=== PATIENT | male | born 1945 | race Caucasian/White ===

== ENCOUNTER 2018-03-20 05:25 | Inpatient (IN) ==
[2018-03-20 05:54] LABS: Baso % (Auto) 0.8 % (0.0-2.0); Eos # (Auto) 0.2 th/mm3 (0.0-0.4); Eos % (Auto) 3.3 % (0.0-4.0); Hematocrit 39.6 % (39.0-51.0); Hemoglobin 12.9 gm/dL (13.0-17.0); Lymph # (Auto) 0.7 th/mm3 (1.0-4.8); Mean Corpuscular HGB Conc 32.6 % (32.0-36.0); Mean Corpuscular Hemoglobin 30.1 pg (27.0-34.0); Mean Corpuscular Volume 92.5 fL (80.0-100.0); Mean Platelet Volume 9.7 fL (7.0-11.0); Mono # (Auto) 0.6 th/mm3 (0.0-0.9); Mono % (Auto) 10.5 % (0.0-8.0); Neut # (Auto) 3.8 th/mm3 (1.8-7.7); Neut % (Auto) 71.4 % (16.0-70.0); Platelet Count 123 th/mm3 (150-450); Red Blood Count 4.28 mil/mm3 (4.50-5.90); Red Cell Distribution Width 23.3 % (11.6-17.2); White Blood Count 5.3 th/mm3 (4.0-11.0)
[2018-03-20 06:04] LABS: INR 2.6 Ratio; Prothrombin Time 26.6 sec (9.8-11.6)
[2018-03-20 06:27] LABS: Bilirubin,Urine Negative (Negative); Clarity,Urine Clear (Clear); Color,Urine Yellow (Yellw/Straw); Glucose,Urine (UA) Negative (Negative); Leukocyte Esterase,Urine Negative (Negative); Nitrite,Urine Negative (Negative)
[2018-03-20 06:32] LABS: Hyaline Casts,Urine 0-3 /lpf (0-3); WBC,Urine 0-5 /hpf (0-5)
[2018-03-20 06:32] LABS: Chloride 94 meq/L (98-107); Sodium 136 meq/L (136-145)
--- NOTE | 2018-03-20 06:34 | ED ---
HPI General Chief Complaint: Respiratory Symptoms Stated Complaint: sob/evac Time Seen by Provider: 03/20/18 05:42 Source: patient, family and EMS Mode of arrival: EMS Limitations: no limitations History of Present Illness HPI Narrative: 72-year-old male presents to the emergency department by EMS transport from home for complaint of progressive shortness of breath 2 weeks with lower extremity edema and weight gain orthopnea PND dyspnea on exertion and at rest. Patient has long-standing history of congestive heart failure atrial fibrillation warfarin therapy and states that he has had no fever or chills. No report of chest pain. No report of nausea vomiting abdominal pain flank pain dysuria or change in bowel habits. No increased bruising. No fall or injury. 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 Patient has been followed by the SD for ongoing medication management. Onset (ago): week(s) (2) Duration: progressively worsening Severity: moderate Relieving factors: nothing Exacerbating factors: exertion Description of mucous: other (none) Able to tolerate fluids by mouth: Yes Associated symptoms: denies other symptoms and shortness of breath Treatments prior to arrival: other (lasix 4 am (per "don't know the milligrams")) Related Data Home Medications Medication Instructions Recorded Confirmed carvedilol [Coreg] 3.125 mg PO BID 03/20/18 03/20/18 digoxin 0.125 mg PO DAILY 03/20/18 03/20/18 furosemide 60 mg PO BID 03/20/18 03/20/18 iron polysac-iron heme polypep 150 mg PO BID 03/20/18 03/20/18 lorazepam 0.5 mg PO Q4HR 03/20/18 03/20/18 pantoprazole 40 mg PO BID 03/20/18 03/20/18 sennosides 8.6 mg PO BID PRN 03/20/18 03/20/18 warfarin 2 mg PO [id number] 03/20/18 03/20/18 Allergies Allergy/AdvReac Type Severity Reaction Status Date / Time No Known Allergies Allergy Unverified 03/20/18 05:27 Review of Systems ROS: all other systems reviewed are negative [facility] Medical History Medical History History of atrial fibrillation (Acute) History of gastroesophageal reflux (GERD) (Acute) Hx of acquired congestive heart failure (Acute) Surgical History Surgical History Hx of CABG (Acute) Social History Social History Substance History: No History of Abuse Smoking Status: Never smoker How Often Do You Have a Drink Containing Alcohol: Never Recent Travel in [facility] within the Last 8 Weeks: No Recent Out of Country Travel within the Last 8 Weeks: No Immunization History Tetanus Immunization: Unsure Hx Influenza Vaccine This Season: Yes Exam Narrative Exam Narrative: GENERAL: Well-nourished, well-developed patient.Mild to moderate respiratory distress/work of breathing without stridor or hoarseness. SKIN: Focused skin assessment warm/dry. HEAD: Normocephalic. EYES: No scleral icterus. No injection or drainage. NECK: Supple, trachea midline. No JVD or lymphadenopathy. CARDIOVASCULAR: Increased irregular irregular rate and rhythm without murmurs, gallops, or rubs. RESPIRATORY: Breath sounds equal bilaterally Bibasilar crackles and diminished breath sounds. No accessory muscle use. GASTROINTESTINAL: Abdomen soft, non-tender, nondistended. MUSCULOSKELETAL: No cyanosis, 3+ pitting BLE edema. BACK: Nontender without obvious deformity. No CVA tenderness. Course Initial Documented Vital Signs Temperature 97.7 F 03/20/18 05:31 Pulse Rate 102 H 03/20/18 05:31 Respiratory Rate 18 03/20/18 05:31 Blood Pressure 107/75 03/20/18 05:31 Pulse Oximetry 99 03/20/18 05:31 Last Documented Vital Signs Temperature 97.7 F 03/20/18 05:31 Pulse Rate 96 H 03/20/18 06:25 Respiratory Rate 18 03/20/18 06:25 Blood Pressure 106/70 03/20/18 06:25 Pulse Oximetry 98 03/20/18 06:25 Medical Decision Making MDM Narrative Medical decision making narrative: 72-year-old male presents to the emergency department for complaint of shortness of breath with known history of CHF and atrial fibrillation without any recent febrile illness productive cough chest pain no syncope or syncope. Patient has had increasing weight gain and lower extremity edema has been taking diuretic [facility] without improvement. Patient placed on quality assurance monitor body with continuous pulse oximetry IV access obtained specimens collected and sent for resulting patient identified to have bibasilar crackles plan will be to administer furosemide diuresis as well as evaluate further for ACS PE pneumonia anemia arrhythmia metabolic disturbance. Patient with known CHF and seems refractory to outpatient medication ordered 40 mg of Lasix to be administered IV however medications to be administered 20 mg and then as tolerated additional 20 mg. CBC with automated differential hemoglobin 12.9 platelet count 123,000 otherwise values grossly normal range; INR is in therapeutic range at 2.6; BNP is elevated at 3076; chest x-ray shows cardiomegaly with patchy interstitial changes right greater than left bibasilarly no pneumothorax no pleural effusion ; chemistries remarkable for normal BUN and creatinine of 17/1.10 respectively patient is hypokalemic with a potassium of 3.0 this will need to be replaced with plan to use oral potassium 40 mEq once digoxin identified calcium is minimally decreased at 8.4 magnesium is in; urinalysis shows proteinuria otherwise unremarkable; troponin and CK values are pending patient is symptomatically improved after Lasix 20 mg IV patient continues to show multifocal frequent PVCs is in atrial fibrillation with controlled ventricular rate. Patient 72-year-old male assumed by me Dr. Pompa from Dr. Johnson at 0700 shift change. Patient anasarca test with edema from his ankles all the way up to his abdomen, he also has some penile edema. Other pertinent positives patient's been having multifocal PVCs stringing together as many as 3 beats in a row on monitor, he has not had any chest pain despite a troponin of 0.2. His digoxin is therapeutic, potassium replaced orally. His blood pressure actually I think is high enough to tolerate an additional 20 of Lasix now but the patient will require several days of diuresis and will need to be admitted to the hospital. This was discussed with him and he is agreeable. Discussed with Dr. Altman who will admit. His saturations have been in the high 90s on 2 L nasal cannula. He does not appear to be in any distress at all. Patient incidentally does have a fair amount of penile edema, it is not compromising the urethral flow but for the patient's comfort a [place] catheter was placed. Patient has seen Dr. Lyles once in the past but has not actually established. Medical Screen Exam Complete: Yes Emergency Medical Condition: Yes Differential Diagnosis Differential Diagnosis: Dyspnea dyspnea, CHF, pneumonia, ACS, arrhythmia, electrolyte disturbance, PE, anemia, dig toxicity, renal failure Medical Records Medical records reviewed: Yes I reviewed the patient's medical records. NONE Lab Data Lab results reviewed: Yes I reviewed the patient's lab results. Result diagrams: 03/20/18 05:37 03/20/18 06:10 Lab Results 03/20/18 03/20/18 03/20/18 Range/Units 05:37 05:37 05:37 CBC w Diff Auto diff final WBC 5.3 (4.0-11.0) th/mm3 RBC 4.28 L (4.50-5.90) mil/mm3 Hgb 12.9 L (13.0-17.0) gm/dL Hct 39.6 (39.0-51.0) % MCV 92.5 (80.0-100.0) fL MCH 30.1 (27.0-34.0) pg MCHC 32.6 (32.0-36.0) % RDW 23.3 H (11.6-17.2) % Plt Count 123 L (150-450) th/mm3 MPV 9.7 (7.0-11.0) fL Neut % (Auto) 71.4 H (16.0-70.0) % Lymph % (Auto) 14.0 (9.0-44.0) % [place] % (Auto) 10.5 H (0.0-8.0) % Eos % (Auto) 3.3 (0.0-4.0) % Baso % (Auto) 0.8 (0.0-2.0) % Neut # (Auto) 3.8 (1.8-7.7) th/mm3 Lymph # (Auto) 0.7 L (1.0-4.8) th/mm3 [place] # (Auto) 0.6 (0.0-0.9) th/mm3 Eos # (Auto) 0.2 (0.0-0.4) th/mm3 Baso # (Auto) 0.0 (0.0-0.2) th/mm3 WBC Differential . Differential Comment . PT 26.6 H (9.8-11.6) sec INR 2.6 Ratio Sodium (136-145) meq/L Potassium (3.5-5.1) meq/L Chloride (98-107) meq/L Carbon Dioxide (21.0-32.0) meq/L Anion Gap (5-15) meq/L BUN (7-18) mg/dL Creatinine (0.60-1.30) mg/dL Estimated GFR (>89) mL/min Random Glucose (74-106) mg/dL Calcium (8.5-10.1) mg/dL Magnesium (1.5-2.5) mg/dL Total Bilirubin (0.2-1.0) mg/dL AST (15-37) U/L ALT (12-78) U/L Alkaline Phosphatase (45-117) U/L Total Creatine Kinase (39-308) U/L Troponin I (0.02-0.05) ng/mL B-Natriuretic Peptide 3076 H (0-100) pg/mL Total Protein (6.4-8.2) g/dL Albumin (3.4-5.0) g/dL Urine Color (Yellw/Straw) Urine Clarity (Clear) Urine pH (5.0-8.5) Ur Specific [place] (1.002-1.035) Urine Protein (Neg-Trace) mg/dL Urine Glucose (UA) (Negative) mg/dL Urine Ketones (Negative) mg/dL Urine Occult Blood (Negative) Urine Nitrate (Negative) Urine Bilirubin (Negative) Urine Urobilinogen (Less than 2) mg/dL Ur Leukocyte Esterase (Negative) Urine WBC (0-5) /hpf Hyaline Casts (0-3) /lpf Micro UA Comment Urine Culture Comments Digoxin (0.8-2.0) ng/mL 03/20/18 03/20/18 Range/Units 06:10 06:20 CBC w Diff WBC (4.0-11.0) th/mm3 RBC (4.50-5.90) mil/mm3 Hgb (13.0-17.0) gm/dL Hct (39.0-51.0) % MCV (80.0-100.0) fL MCH (27.0-34.0) pg MCHC (32.0-36.0) % RDW (11.6-17.2) % Plt Count (150-450) th/mm3 MPV (7.0-11.0) fL Neut % (Auto) (16.0-70.0) % Lymph % (Auto) (9.0-44.0) % [place] % (Auto) (0.0-8.0) % Eos % (Auto) (0.0-4.0) % Baso % (Auto) (0.0-2.0) % Neut # (Auto) (1.8-7.7) th/mm3 Lymph # (Auto) (1.0-4.8) th/mm3 [place] # (Auto) (0.0-0.9) th/mm3 Eos # (Auto) (0.0-0.4) th/mm3 Baso # (Auto) (0.0-0.2) th/mm3 WBC Differential Differential Comment PT (9.8-11.6) sec INR Ratio Sodium 136 (136-145) meq/L Potassium 3.0 L (3.5-5.1) meq/L Chloride 94 L (98-107) meq/L Carbon Dioxide 36.0 H (21.0-32.0) meq/L Anion Gap 6 (5-15) meq/L BUN 17 (7-18) mg/dL Creatinine 1.10 (0.60-1.30) mg/dL Estimated GFR 66 L (>89) mL/min Random Glucose 106 (74-106) mg/dL Calcium 8.4 L (8.5-10.1) mg/dL Magnesium 1.8 (1.5-2.5) mg/dL Total Bilirubin 1.4 H (0.2-1.0) mg/dL AST 20 (15-37) U/L ALT 16 (12-78) U/L Alkaline Phosphatase 117 (45-117) U/L Total Creatine Kinase 33 L (39-308) U/L Troponin I 0.23 H (0.02-0.05) ng/mL B-Natriuretic Peptide (0-100) pg/mL Total Protein 6.7 (6.4-8.2) g/dL Albumin 3.2 L (3.4-5.0) g/dL Urine Color Yellow (Yellw/Straw) Urine Clarity Clear (Clear) Urine pH 6.0 (5.0-8.5) Ur Specific [place] 1.010 (1.002-1.035) Urine Protein 30 H (Neg-Trace) mg/dL Urine Glucose (UA) Negative (Negative) mg/dL Urine Ketones Negative (Negative) mg/dL Urine Occult Blood Negative (Negative) Urine Nitrate Negative (Negative) Urine Bilirubin Negative (Negative) Urine Urobilinogen 1.0 (Less than 2) mg/dL Ur Leukocyte Esterase Negative (Negative) Urine WBC 0-5 (0-5) /hpf Hyaline Casts 0-3 (0-3) /lpf Micro UA Comment Culture not ind Urine Culture Comments Culture not ind Digoxin 1.0 (0.8-2.0) ng/mL Imaging Data Radiologist's impression: Chest X-Ray 03/20/18 05:27 CONCLUSION: Small bilateral effusions and right lower lobe airspace disease suspected. ECG Data EKG Prior to Arrival: No Attestation: I personally reviewed and interpreted this ECG as follows: Prior ECG tracings: not available for review Interpretation: EKG: Atrial fibrillation with controlled ventricular rate 90 multiple PVCs IVCD no acute ST elevation nonspecific ST-T changes laterally Discharge Plan Discharge Disposition Patient Disposition: 30 Still Patient Discharge Condition Condition: Fair Discharge Details Diagnosis: Anasarca, CHF (congestive heart failure), Frequent PVCs, Elevated troponin Physicians Team ED Provider: Wesley Pompa Primary Care Provider: UNKNOWN, Attending Provider: Celio Wong Other Providers: Cj Ricardo Status ED Status: Admitted Patient
[2018-03-20 06:35] LABS: Calcium 8.4 mg/dL (8.5-10.1)
[2018-03-20 06:36] LABS: Albumin 3.2 g/dL (3.4-5.0); Anion Gap 6 meq/L (5-15); Blood Urea Nitrogen 17 mg/dL (7-18); Glucose,Random 106 mg/dL (74-106); Magnesium 1.8 mg/dL (1.5-2.5)
[2018-03-20 06:38] LABS: Alanine Aminotransferase 16 U/L (12-78); Aspartate Aminotransferase 20 U/L (15-37)
[2018-03-20 06:39] LABS: Glomerular Filtration Rate 66 mL/min (>89)
[2018-03-20 06:40] LABS: Total Protein 6.7 g/dL (6.4-8.2)
[2018-03-20 06:41] LABS: Alkaline Phosphatase 117 U/L (45-117)
[2018-03-20 06:44] LABS: Troponin I 0.23 ng/mL (0.02-0.05)
[2018-03-20 07:06] LABS: Creatine Kinase 33 U/L (39-308)
--- NOTE | 2018-03-20 07:29 | XR ---
EXAM DATE: 03/20/2018 5:58 AM EDT AGE/SEX: 72 years / Male INDICATIONS: Short of breath for 3 days. CLINICAL DATA: This is the patient's initial encounter. Patient reports that signs and symptoms have been present for 3 days and indicates a pain score of 2/10. MEDICAL/SURGICAL HISTORY: Chronic obstructive pulmonary disease. . Open heart surgery. COMPARISON: No prior exams available for comparison. FINDINGS: Cardiomegaly, median sternotomy wires, and blunting of the right lateral costophrenic angle and left lateral costophrenic angle identified suggesting small. There is hazy infiltrate suspected in the rig ht lower lobe as well as linear scarring. CONCLUSION: Small bilateral effusions and right lower lobe airspace disease suspected. Electronically signed by: Himanshu Calhoun MD 03/20/2018 7:27 AM EDT
[2018-03-20] MEDS ORDERED: Acetaminophen 325 MG Tablet PO PRN ×2 (09:26→13:59)
[2018-03-20] MEDS ORDERED: Bisacodyl 10 MG Supp RECTAL PRN (09:26)
[2018-03-20] MEDS ORDERED: Warfarin Consult Pharmacy OTHER PRN (09:30)
[2018-03-20 11:24] LABS: Troponin I 0.24 ng/mL (0.02-0.05)
[2018-03-20] MEDS ORDERED: Morphine Inj 4 MG/ML Vial IV.PUSH PRN (13:59)
[2018-03-20] MEDS ORDERED: Naloxone Inj 0.4 MG/ML Vial IV.PUSH PRN (13:59)
--- NOTE | 2018-03-20 14:13 | P.HP ---
History of Present Illness Primary Care Physician: UNKNOWN History of Present Illness: This is a 73-year-old male with a history of systolic heart failure EF 25%, atrial fibrillation on Coumadin, aVR, coronary artery disease status post multiple CABG and stent and chronic respiratory failure on nasal cannula. Family history no NC. Patient presents to the emergency department because of shortness of breath for the past 2 weeks. He reports of orthopnea, PND, dyspnea on exertion, bilateral lower extremity edema and weight gain. States he has been compliant with medical therapy, fluid and dietary restrictions though he admitted partaking microwavable food. Denies fever, chills, cough, chest pain. Patient has been under hospice for the past 3 weeks secondary to heart failure. At this time he wants aggressive care but does not want cardiac catheterization. All other systems reviewed negative. Inpatient Certification: I certify that the inpatient services were ordered in accordance with Medicare regulations governing the order. This includes certification that hospital inpatient services are reasonable and necessary and in the case of services not specified as inpatient-only under 42 CFR 419.22(n), that they are appropriately provided as inpatient services in accordance to with the 2-midnight benchmark under 43 CFR 412.3(e) Estimated Total Length of Stay (Days): 2 Plans for Post Hospital Care: Not yet determined Review of Systems All other systems reviewed negative except as stated in HPI PMFSH - History History Provided By: Patient, Forming Machine Operator / EMT - Medical History Medical History: Medical History (Last Reviewed 03/20/18 @ 06:30 by Diamante Johnson MD) History of atrial fibrillation History of gastroesophageal reflux (GERD) Hx of acquired congestive heart failure - Surgical History Surgical History: Surgical History (Last Reviewed 03/20/18 @ 06:30 by Diamante Johnson MD) Hx of CABG - Tobacco History Smoking Status: Never smoker - Alcohol History How Often Do You Have a Drink Containing Alcohol: Never - Substance Use History Substance History: No History of Abuse - Travel History Recent Travel in the [place] Within the Last 8 Weeks: No Recent Travel Out of the Country Within the Last 8 Weeks: No - Immunization History Tetanus Immunization: Unsure Hx Influenza Vaccine This Season: Yes Medications and Allergies Active Medications: Active Medications Acetaminophen (Tylenol) 650 mg PO Q4H PRN PRN Reason: Temp > 100.4 Al Hydroxide/Mg Hydroxide (Milk Of Magnesia Liq) 30 ml PO Q12H PRN PRN Reason: Mild Constipation Bisacodyl (Dulcolax Supp) 10 mg RECTAL DAILY PRN PRN Reason: SEVERE CONSITIPATION Carvedilol (Coreg) 3.125 mg PO BID [facility] Digoxin (Lanoxin) 125 mcg PO DAILY [facility] Furosemide (Lasix Inj) 20 mg IV.PUSH BID@0900,1800 [facility] Lactulose (Lactulose Liq) 30 ml PO DAILY PRN PRN Reason: SEVERE CONSITIPATION Lorazepam (Ativan) 0.5 mg PO Q4HR PRN PRN Reason: ANXIETY Ondansetron HCl (Zofran Inj) 4 mg IV.PUSH Q6H PRN PRN Reason: NAUSEA OR VOMITING Pantoprazole Sodium (Protonix) 40 mg PO BID [facility] Pharmacy Profile Note (Coumadin Consult Pharmacy) 1 each OTHER UNSCH PRN PRN Reason: PHARMACY DOCUMENTATION Potassium Chloride (Kcl) 10 meq PO BID [facility] Sennosides (Senokot) 17.2 mg PO Q12H PRN PRN Reason: Moderate Constipation Sodium Chloride (Ns Flush) 2 ml IV.FLUSH PRN PRN PRN Reason: FLUSH AFTER USING IV ACCESS Last Admin: 03/20/18 09:32 Dose: 2 ml Warfarin Sodium (Coumadin) 2 mg PO [id number]@1600 [facility] Allergies Allergy/AdvReac Type Severity Reaction Status Date / Time No Known Allergies Allergy Unverified 03/20/18 05:27 Home Medications Medication Instructions Recorded Confirmed Type carvedilol [Coreg] 3.125 mg PO BID 03/20/18 03/20/18 History digoxin 0.125 mg PO DAILY 03/20/18 03/20/18 History furosemide 60 mg PO BID 03/20/18 03/20/18 History iron polysac-iron heme polypep 150 mg PO BID 03/20/18 03/20/18 History lorazepam 0.5 mg PO Q4HR 03/20/18 03/20/18 History pantoprazole 40 mg PO BID 03/20/18 03/20/18 History sennosides 8.6 mg PO BID PRN 03/20/18 03/20/18 History warfarin 2 mg PO [id number] 03/20/18 03/20/18 History Exam Vital signs: Vital Signs 03/20/18 05:31 03/20/18 05:39 03/20/18 06:25 Temperature 97.7 F Pulse Rate 102 H 96 H Respiratory Rate 18 18 Blood Pressure 107/75 106/70 Pulse Oximetry 99 99 98 03/20/18 12:00 Temperature 96.0 F L Pulse Rate 65 Respiratory Rate 18 Blood Pressure 109/55 L Pulse Oximetry 94 L Intake & Output 03/19/18 03/20/18 03/20/18 18:59 06:59 18:59 Output Total 700 / 700 Balance -700 / -700 Weight 74.843 kg 79 kg Output: Urine 700 / 700 Other: # Voids 2 Narrative: GENERAL: Well-developed and well-nourished on 2 L nasal cannula SKIN: Warm and dry. HEAD: Atraumatic. Normocephalic. EYES: Pupils equal and round. No scleral icterus. No injection or drainage. ENT: No nasal bleeding or discharge. Mucous membranes pink and moist. NECK: Trachea midline. No JVD. CARDIOVASCULAR: Irregular irregular with metallic click RESPIRATORY: No accessory muscle use. Clear to auscultation. Decrease breath sounds equal bilaterally. GASTROINTESTINAL: Abdomen soft, non-tender, nondistended. MUSCULOSKELETAL: Extremities without clubbing, cyanosis but with bilateral lower extremity pitting edema. Penile edema. No obvious deformities. NEUROLOGICAL: Awake and alert. No obvious cranial nerve deficits. Motor grossly within normal limits. Five out of 5 muscle strength in the arms and legs. Normal speech. PSYCHIATRIC: Appropriate mood and affect; insight and judgment normal. Results - Labs CBC & Chem 7: 03/20/18 05:37 03/20/18 06:10 Labs: Laboratory Results - last 24 hr 03/20/18 03/20/18 03/20/18 05:37 05:37 05:37 CBC w Diff Auto diff final WBC 5.3 RBC 4.28 L Hgb 12.9 L Hct 39.6 MCV 92.5 MCH 30.1 MCHC 32.6 RDW 23.3 H Plt Count 123 L MPV 9.7 Neut % (Auto) 71.4 H Lymph % (Auto) 14.0 [place] % (Auto) 10.5 H Eos % (Auto) 3.3 Baso % (Auto) 0.8 Neut # (Auto) 3.8 Lymph # (Auto) 0.7 L [place] # (Auto) 0.6 Eos # (Auto) 0.2 Baso # (Auto) 0.0 WBC Differential . Differential Comment . PT 26.6 H INR 2.6 Sodium Potassium Chloride Carbon Dioxide Anion Gap BUN Creatinine Estimated GFR Random Glucose Calcium Magnesium Total Bilirubin AST ALT Alkaline Phosphatase Total Creatine Kinase Troponin I B-Natriuretic Peptide 3076 H Total Protein Albumin Urine Color Urine Clarity Urine pH Ur Specific [place] Urine Protein Urine Glucose (UA) Urine Ketones Urine Occult Blood Urine Nitrate Urine Bilirubin Urine Urobilinogen Ur Leukocyte Esterase Urine WBC Hyaline Casts Micro UA Comment Urine Culture Comments Digoxin 03/20/18 03/20/18 03/20/18 06:10 06:20 10:33 CBC w Diff WBC RBC Hgb Hct MCV MCH MCHC RDW Plt Count MPV Neut % (Auto) Lymph % (Auto) [place] % (Auto) Eos % (Auto) Baso % (Auto) Neut # (Auto) Lymph # (Auto) [place] # (Auto) Eos # (Auto) Baso # (Auto) WBC Differential Differential Comment PT INR Sodium 136 Potassium 3.0 L Chloride 94 L Carbon Dioxide 36.0 H Anion Gap 6 BUN 17 Creatinine 1.10 Estimated GFR 66 L Random Glucose 106 Calcium 8.4 L Magnesium 1.8 Total Bilirubin 1.4 H AST 20 ALT 16 Alkaline Phosphatase 117 Total Creatine Kinase 33 L 33 L Troponin I 0.23 H 0.24 H B-Natriuretic Peptide Total Protein 6.7 Albumin 3.2 L Urine Color Yellow Urine Clarity Clear Urine pH 6.0 Ur Specific [place] 1.010 Urine Protein 30 H Urine Glucose (UA) Negative Urine Ketones Negative Urine Occult Blood Negative Urine Nitrate Negative Urine Bilirubin Negative Urine Urobilinogen 1.0 Ur Leukocyte Esterase Negative Urine WBC 0-5 Hyaline Casts 0-3 Micro UA Comment Culture not ind Urine Culture Comments Culture not ind Digoxin 1.0 - Imaging Impressions Chest X-Ray 03/20/18 05:27 CONCLUSION: Small bilateral effusions and right lower lobe airspace disease suspected. Caprini VTE Risk Assessment Caprini VTE Risk Assessment: Moderate/High Risk (score >= 2) Caprini Risk Assessment Model: Point Value = 1 Point Value = 2 Point Value = 3 Point Value = 5 Age 41-60 Minor surgery BMI > 25 kg/m2 Swollen legs Varicose veins or History of unexplained or recurrent spontaneous Oral contraceptives or hormone replacement Sepsis (< 1 month) Serious lung disease, including pneumonia (< 1 month) Abnormal pulmonary function Acute myocardial infarction Congestive heart failure (< 1 month) History of inflammatory bowel disease Medical patient at bed rest Age 61-74 Arthroscopic surgery Major open surgery (> 45 min) Laparoscopic surgery (> 45 min) Malignancy Confined to bed (> 72 hours) Immobilizing plaster cast Central venous access Age >= 75 History of VTE Family history of VTE Factor V Leiden Prothrombin [id number] Lupus anticoagulant Anticardiolipin antibodies Elevated serum homocysteine Heparin-induced thrombocytopenia Other congenital or acquired thrombophilia Stroke (< 1 month) Elective arthroplasty Hip, pelvis, or leg fracture Acute spinal cord injury (< 1 month) Prophylaxis Regimen: Total Risk Factor Score Risk Level Prophylaxis Regimen 0-1 Low Early ambulation 2 Moderate Order ONE of the following: *Sequential Compression Device (SCD) *Heparin 5000 units SQ BID 3-4 Higher Order ONE of the following medications: *Heparin 5000 units SQ TID *Enoxaparin/Lovenox 40 mg SQ daily (WT < 150 kg, CrCl > 30 mL/min) *Enoxaparin/Lovenox 30 mg SQ daily (WT < 150 kg, CrCl > 10-29 mL/min) *Enoxaparin/Lovenox 30 mg SQ BID (WT < 150 kg, CrCl > 30 mL/min) AND/OR *Sequential Compression Device (SCD) 5 or more Highest Order ONE of the following medications: *Heparin 5000 units SQ TID (Preferred with Epidurals) *Enoxaparin/Lovenox 40 mg SQ daily (WT < 150 kg, CrCl > 30 mL/min) *Enoxaparin/Lovenox 30 mg SQ daily (WT < 150 kg, CrCl > 10-29 mL/min) *Enoxaparin/Lovenox 30 mg SQ BID (WT < 150 kg, CrCl > 30 mL/min) AND *Sequential Compression Device (SCD) Assessment and Plan - Plan This is a 73-year-old male with a history of systolic heart failure EF 25%, atrial fibrillation on Coumadin, aVR, coronary artery disease status post multiple CABG and stent and chronic respiratory failure on nasal cannula. Patient presents to the emergency department because of shortness of breath for the past 2 weeks. He reports of orthopnea, PND, dyspnea on exertion, bilateral lower extremity edema and weight gain. Acute on chronic systolic heart failure EF 25%. This is likely secondary to dietary indiscretion. Chest x-ray image interpreted by me with bilateral pleural effusion. CHF education, I/oh and monitor weight. Continue diuresis with IV Lasix. Consider Entresto or MARYJANE/ARB. Continue Coreg. Obtain 2D echo. Ct [place] for accurate I/O, patient aware risk of infection Elevated troponin. Patient denies chest pain. EKG shows atrial fibrillation with PVC, LAD and T changes in the lateral leads. History of coronary artery disease status post CABG and stent. Trend cardiac enzymes. Patient received aspirin continue Coreg. He does not want cardiac catheterization at this time. Hypokalemia potassium 3. Magnesium within normal limits. Patient received 40 mg p.o. potassium in the emergency department. Start potassium 10 mEq p.o. twice a day with IV Lasix. Repeat BMP and magnesium in the morning. DVT prophylaxis with SCD and Coumadin keep INR between 2.5-3 history of AVR/fib Discharge Planning: Home in 1-2 days. Wants aggressive care now and resume hospice when discharge
[2018-03-20] MEDS: Digoxin 125 MCG Tablet PO SCH (15:19)
[2018-03-20] MEDS: LORazepam 0.5 MG Tablet PO PRN ×2 (15:19→21:45)
[2018-03-20 16:55] LABS: Troponin I 0.23 ng/mL (0.02-0.05)
--- NOTE | 2018-03-20 18:34 | ECHRPT ---
Indication: heart failure CONCLUSIONS The left ventricular systolic function is severely reduced with an estimated ejection fraction in th e range of 25-30%. Moderately dilated left ventricle. There is global left ventricular dysfunction. The right ventricular systoilc function is moderately decreased. Mild mitral valve regurgitation. [place] mechanical aortic valve by history. Mechanical AVR with elevated gradients, most likely moderate stenosis. Mild aortic valve regurgitation. There is mild tricuspid valve regurgitation. BP: / HR: Rhythm: MEASUREMENTS (Male / Female) Normal Values Technical Quality: 2D ECHO LV Diastolic Diameter PLAX 6.8 cm 4.2 - 5.9 / 3.9 - 5.3 cm LV Systolic Diameter PLAX 6.0 cm IVS Diastolic Thickness 1.0 cm 0.6 - 1.0 / 0.6 - 0.9 cm LVPW Diastolic Thickness 1.0 cm 0.6 - 1.0 / 0.6 - 0.9 cm LV Relative Wall Thickness 0.3 RV Internal Dim ED PLAX 2.1 cm LVOT Diameter 2.0 cm LA Systolic Diameter LX 4.0 cm 3.0 - 4.0 / 2.7 - 3.8 cm LV Ejection Fraction MOD 4C 33.1 % LV Ejection Fraction 4C AL 33.5 % M-MODE Aortic Root Diameter MM 2.2 cm AV Cusp Separation MM 0.9 cm DOPPLER AV Peak Velocity 336.8 cm/s AV Peak Gradient 45.4 mmHg AV Mean Gradient 22.7 mmHg AV Velocity Time Integral 57.7 cm AI Peak Velocity 334.0 cm/s AI Peak Gradient 44.6 mmHg AI Pressure Half Time 460.5 ms LVOT Peak Velocity 80.7 cm/s LVOT Peak Gradient 2.6 mmHg LVOT Velocity Time Integral 13.9 cm AV Area Cont Eq vti 0.8 cm AV Area Cont Eq pk 0.8 cm MV Area PHT 5.5 cm TR Peak Velocity 369.0 cm/s TR Peak Gradient 54.5 mmHg Right Atrial Pressure 10.0 mmHg Pulmonary Artery Systolic Pressu 64.5 mmHg Right Ventricular Systolic Press 64.5 mmHg PV Peak Velocity 121.0 cm/s PV Peak Gradient 5.9 mmHg FINDINGS LEFT VENTRICLE The left ventricular systolic function is severely reduced with an estimated ejection fraction in th e range of 25-30%. Moderately dilated left ventricle. There is global left ventricular dysfunction. RIGHT VENTRICLE The right ventricle is mildly dilated. The right ventricular systoilc function is moderately decreased. LEFT ATRIUM The left atrial size is moderately dilated. RIGHT ATRIUM The right atrial size is mildly dilated. ATRIAL SEPTUM Normal atrial septal thickness without atrial level shunting by limited color doppler interrogation. AORTA The aortic root and proximal ascending aorta are normal in size on limited imaging. MITRAL VALVE Mild thickening of the mitral valve leaflets. Mild mitral valve regurgitation. No mitral valve stenosis. Moderate mitral annular calcification. AORTIC VALVE [facility] [place] mechanical aortic valve by history. Mechanical AVR with elevated gradients, most likely moderate stenosis. Mild aortic valve regurgitation. TRICUSPID VALVE Structurally normal tricuspid valve. There is mild tricuspid valve regurgitation. PULMONARY VALVE No pulmonary valve regurgitation or stenosis. VESSELS The inferior vena cava is mildly dilated. PERICARDIUM No pericardial effusion. Cj Ricardo DO (Electronically Signed) Final Date:20 March 2018 18:33
--- NOTE | 2018-03-20 19:33 | ECG ---
Date Performed: 03/20/2018 Time Performed: 05:34:49 PTAGE: 72 years EKG: ATRIAL FIBRILLATION WITH ABERRANT CONDUCTION OR VENTRICULAR PREMATURE COMPLEXES MARKED LEFT AXIS DEVIATION MODERATE INTRAVENTRICULAR CONDUCTION DELAY ST DEVIATION AND MODERATE T-WAVE ABNORMALI TY, CONSIDER LATERAL ISCHEMIA ABNORMAL ECG NO PREVIOUS TRACING DOCTOR: Cj Ricardo Interpretating Date/Time 03/20/2018 19:31:19
[2018-03-20] MEDS ORDERED: [UNRECOGNIZED DRUG - OTHER] PO SCH (21:00)
[2018-03-20] MEDS ORDERED: Potassium Chloride 10 MEQ ER Capsule PO SCH (21:00)
--- NOTE | 2018-03-20 22:08 | MB ---
cc: Cj Ricardo DO DATE: 03/20/2018 REASON FOR CONSULTATION: Acute decompensated heart failure. HISTORY OF PRESENT ILLNESS: Wesley Magana is a pleasant 73-year-old male who presented to [facility] Emergency Room due to shortness of breath. He states that his shortness of breath has been going on for the past 2 weeks. He has also noticed significant orthopnea as well as lower extremity edema and weight gain. He states that he has been compliant with his medical therapy, fluid and dietary restrictions, although he does admit to eating microwave dinners most nights. Apparently, he was previously in [facility] for similar type symptoms and was placed on hospice due to his congestive heart failure. In seeing him, he is currently hemodynamically stable, resting comfortably in bed. PAST MEDICAL HISTORY: 1. Atrial fibrillation. 2. Coronary artery disease. 3. Gastroesophageal reflux disease. 4. Systolic heart failure with last known ejection fraction of 25%. 5. Anticoagulation with Coumadin for atrial fibrillation. PAST SURGICAL HISTORY: 1. CABG, multiple sites of CABG with 3 separate operations. 2. History of mechanical AVR. ALLERGIES: NO KNOWN DRUG ALLERGIES. MEDICATIONS: 1. Coumadin 5 mg Monday, , Monday, Monday. 2. Ativan 0.5 mg every 4 hours as needed. 3. Digoxin 0.125 mg daily. 4. Lasix 60 mg b.i.d. 5. Protonix 40 mg b.i.d. 6. Sennosides 8.6 mg b.i.d. as needed. 7. Iron 150 mg b.i.d. 8. Coreg 3.125 mg b.i.d. FAMILY HISTORY: He denies premature coronary artery disease or sudden cardiac within the family. SOCIAL HISTORY: He denies current tobacco, alcohol, or drug abuse. REVIEW OF SYSTEMS: Fourteen systems were reviewed including osteopathic. Pertinent positives and negatives above, otherwise negative. PHYSICAL EXAMINATION: VITAL SIGNS: Temperature 96.0, heart rate 65, blood pressure 109/55, respirations 18, pulse oximetry 94% on 2 L. GENERAL: The patient appears well, no acute distress. Alert, awake and oriented x3. HEENT: Extraocular muscles intact. Mucous membranes moist. NECK: Supple with mild JVD bilaterally. Carotid upstroke is brisk in nature. HEART: Irregularly irregular with mechanical click noted. There is a 2/6 crescendo decrescendo murmur to the right sternal border. LUNGS: Decreased breath sounds bilaterally with crackles to the mid-lung. ABDOMEN: Soft, nontender, nondistended. No organomegaly noted. EXTREMITIES: 2+ pitting edema bilaterally. Femoral and distal pulses are intact bilaterally. NEUROLOGIC: No focal deficits. SKIN: Warm, dry and intact. OSTEOPATHIC: No kyphoscoliosis, lordosis, or paraspinal tender points. LABORATORY DATA: Hemoglobin 12.9, hematocrit 39.6, platelets 123. INR 2.6. Potassium 3.0, BUN 17, creatinine 1.1. Troponin 0.24. Electrocardiogram (03/20/2018 at 0954): Atrial fibrillation with controlled ventricular response, PVCs versus aberrantly conducted beats, left axis deviation. IMPRESSION: 1. Acute decompensated systolic heart failure. 2. Dietary indiscretion of sodium intake. 3. History of mechanical aortic valve replacement. 4. Coagulopathy, currently on Coumadin. 5. Coronary artery disease with multiple coronary artery bypass graft procedures. 6. Elevated troponin, most likely type 2 in nature. RECOMMENDATIONS: 1. Mr. Magana presented with acute systolic heart failure and will be started on diuretic therapy. 2. His systolic heart failure is most likely due to dietary indiscretion by eating microwavable dinners, most likely high in sodium. I discussed with him the concern with eating these type of foods. 3. Upon discharge, he should watch his weight, and if he is up more than 2 pounds in 24 hours or 3 pounds in 48 hours, this is most likely due to water weight, and he will have to further watch his salt intake. 4. He does have a mildly elevated troponin, but this is relatively flat, consistent with a type 2 NSTEMI to his congestive heart failure. 4. He will continue on carvedilol for his current cardiomyopathy. After diuresing, consideration should be made for placing him on MARYJANE inhibitor, although this is difficult as his blood pressure is borderline low. 5. He is currently on hospice, and we discussed aggressive management versus continuing on hospice, and he would like to continue on hospice, which I think is reasonable due to his overall illness. 6. We will repeat an echo to evaluate his overall left ventricular function. 7. He is not a candidate for ICD therapy at this time. The case was discussed with Dr. Wong. I will plan on following up as needed. If there are any questions, please do not hesitate to call. Thank you for allowing me to see Wesley Magana. If there are any questions, please do not hesitate to call. DO CHARMAINE Dempsey/esha , 09:12 PM , 09:24 PM
--- NOTE | 2018-03-20 23:40 | ECG ---
Date Performed: 03/20/2018 Time Performed: 16:14:18 PTAGE: 72 years EKG: PROBABLE AFIB WITH FREQUENT VENTRICULAR PREMATURE COMPLEXES OR ABERRANCY MARKED LEFT AXIS D EVIATION LEFT BUNDLE BRANCH BLOCK LATERAL MYOCARDIAL INFARCTION ABNORMAL ECG PREVIOUS TRACING : 03/20/2018 09.54 Since the previous tracing, no significant change noted DOCTOR: Cj Ricardo Interpretating Date/Time 03/20/2018 23:38:35
--- NOTE | 2018-03-20 23:52 | ECG ---
Date Performed: 03/20/2018 Time Performed: 09:54:36 PTAGE: 72 years EKG: PROBABLE AFIB WITH PVCS OR ABERRANCY MARKED LEFT AXIS DEVIATION INTRAVENTRICULAR CONDUCTION DELAY ABNORMAL ECG PREVIOUS TRACING : 03/20/2018 05.34 Since the previous tracing, no significant change noted DOCTOR: Cj Ricardo Interpretating Date/Time 03/20/2018 23:51:34
[2018-03-21 06:08] LABS: Potassium 3.2 meq/L (3.5-5.1)
[2018-03-21 06:10] LABS: INR 2.1 Ratio
[2018-03-21 06:12] LABS: Calcium 8.3 mg/dL (8.5-10.1); Carbon Dioxide 39.1 meq/L (21.0-32.0)
[2018-03-21] MEDS: LORazepam 0.5 MG Tablet PO PRN ×2 (07:22→21:43)
--- NOTE | 2018-03-21 11:39 | P.DCO ---
- Physical Therapy Order: Evaluate and treat, Improve ambulation, Strength and gait training - Home Health Nursing Order: CHF education, Medication education-adverse effect, Nursing assessment with vital signs - Certification I have seen patient Wesley Magana on 03/21/18. My clinical findings support the need for the requested home health care services because: Patient has SOB I certify that my clinical findings support that this patient is homebound because: Poor cardiac reserve
--- NOTE | 2018-03-21 11:50 | P.PN ---
Subjective Interval history: Follow-up heart failure. Patient able to ambulate the hallway on nasal cannula. He is diuresing negative balance of 3300 mL but weight has increased?. Physical Exam Vital signs: Vital Signs 03/20/18 12:00 03/20/18 16:00 03/20/18 19:00 Temperature 96.0 F L 96.6 F L Pulse Rate 65 90 Respiratory Rate 18 17 Blood Pressure 109/55 L 101/69 Pulse Oximetry 94 L 95 98 03/20/18 20:00 03/20/18 20:30 03/21/18 00:00 Temperature 97.1 F L 97.1 F L Pulse Rate 90 81 79 Respiratory Rate 18 18 Blood Pressure 105/57 L 112/61 Pulse Oximetry 95 94 L 03/21/18 02:52 03/21/18 04:00 03/21/18 08:00 Temperature 96.6 F L 97.5 F L Pulse Rate 102 H 94 H 79 Respiratory Rate 20 18 20 Blood Pressure 106/61 92/52 L Pulse Oximetry 97 95 Intake & Output 03/20/18 03/21/18 03/21/18 18:59 06:59 18:59 Intake Total 240 / 240 Output Total 1700 / 1700 1600 / 1600 Balance -1700 / -1700 -1600 / -1600 240 / 240 Weight 79 kg Intake: Oral 240 / 240 Output: Urine 700 / 700 1600 / 1600 Urine Amount (Catheter) 1000 / 1000 Indwelling Urethral Catheter 1000 / 1000 Other: # Voids 2 Narrative: GENERAL: Well-developed and well-nourished in no distress SKIN: Warm and dry. CARDIOVASCULAR: Irregularly irregular RESPIRATORY: No accessory muscle use. Clear to auscultation. Breath sounds equal bilaterally. GASTROINTESTINAL: Abdomen soft, non-tender, nondistended. Penile edema MUSCULOSKELETAL: Extremities without clubbing, cyanosis but with bilateral lower extremity pitting edema. No obvious deformities. NEUROLOGICAL: Awake and alert. No obvious cranial nerve deficits. Motor grossly within normal limits. Five out of 5 muscle strength in the arms and legs. Normal speech. - Urinary Catheter Management Indwelling Urethral Catheter Cath placed during this visit: yes Reason for continuing: Chronic Urinary Retention Insertion date: 03/20/18 Insertion time: 09:17 Results - Labs CBC & Chem 7: 03/20/18 05:37 03/21/18 05:08 Laboratory Results - last 24 hr 03/20/18 03/21/18 03/21/18 16:20 05:08 05:08 PT 21.0 H INR 2.1 Sodium 139 Potassium 3.2 L Chloride 96 L Carbon Dioxide 39.1 H Anion Gap 4 L BUN 15 Creatinine 0.96 Estimated GFR 77 L Random Glucose 95 Calcium 8.3 L Total Creatine Kinase 34 L Troponin I 0.23 H - Imaging ITS Impressions Chest X-Ray 03/20/18 05:27 CONCLUSION: Small bilateral effusions and right lower lobe airspace disease suspected. - Procedures none Assessment and Plan - Assessment (1) CHF (congestive heart failure) Code(s): I50.9 - Heart failure, unspecified Status: Acute (2) Elevated troponin Code(s): R74.8 - Abnormal levels of other serum enzymes Status: Acute - Plan This is a 73-year-old male with a history of systolic heart failure EF 25%, atrial fibrillation on Coumadin, aVR, coronary artery disease status post multiple CABG and stent and chronic respiratory failure on nasal cannula. Patient presents to the emergency department because of shortness of breath for the past 2 weeks. He reports of orthopnea, PND, dyspnea on exertion, bilateral lower extremity edema and weight gain. Acute on chronic systolic heart failure EF 25%. This is likely secondary to dietary indiscretion. Chest x-ray image interpreted by me with bilateral pleural effusion. CHF education, I/oh and monitor weight. Patient is diuresing continue with IV Lasix. Consider Entresto or MARYJANE/ARB however BP is borderline low. Continue Coreg. Ct [place], patient aware risk of infection Elevated troponin secondary to heart failure exacerbation. Patient denies chest pain. EKG shows atrial fibrillation with PVC, LAD and T changes in the lateral leads. History of coronary artery disease status post CABG and stent. Patient received aspirin continue Coreg. He does not want cardiac catheterization at this time. Hypokalemia. Increase potassium to 20 mg p.o. twice a day and repeat BMP and magnesium in the morning. DVT prophylaxis with SCD and Coumadin keep INR between 2.5-3 history of AVR/fib Discharge Planning: Home in 1-2 days. Wants aggressive care now and resume hospice when discharge. Does not need home care PT might benefit from nursing if patient rescinds hospice
[2018-03-21] MEDS: Digoxin 125 MCG Tablet PO SCH (12:35)
[2018-03-22 05:57] LABS: Potassium 3.5 meq/L (3.5-5.1)
[2018-03-22 05:59] LABS: Calcium 8.2 mg/dL (8.5-10.1)
[2018-03-22 06:00] LABS: Carbon Dioxide 39.7 meq/L (21.0-32.0)
[2018-03-22 06:00] LABS: INR 2.1 Ratio; Prothrombin Time 21.2 sec (9.8-11.6)
[2018-03-22] MEDS: LORazepam 0.5 MG Tablet PO PRN ×2 (06:50→21:04)
[2018-03-22] MEDS: Digoxin 125 MCG Tablet PO SCH (08:20)
--- NOTE | 2018-03-22 10:36 | P.PN ---
Subjective Interval history: Follow-up heart failure. No new complaints. Physical Exam Vital signs: Vital Signs 03/21/18 16:23 03/21/18 20:00 03/21/18 20:16 Temperature 97.1 F L Pulse Rate 102 H 69 Respiratory Rate 19 Blood Pressure 109/57 L Pulse Oximetry 99 98 03/21/18 22:21 03/22/18 00:00 03/22/18 04:00 Temperature 96.8 F L 97 F L 97.2 F L Pulse Rate 86 102 H 85 Respiratory Rate 20 20 20 Blood Pressure 100/57 L 96/62 L 108/57 L Pulse Oximetry 96 97 97 03/22/18 07:38 03/22/18 08:12 Temperature 96.8 F L Pulse Rate 66 Respiratory Rate 20 Blood Pressure 109/67 Pulse Oximetry 95 95 Intake & Output 03/21/18 03/22/18 03/22/18 18:59 06:59 18:59 Intake Total 720 / 720 240 / 240 Output Total 850 / 850 500 / 500 Balance -130 / -130 -260 / -260 Weight 79.2 kg Intake: Oral 720 / 720 240 / 240 Output: Urine 850 / 850 500 / 500 Narrative: GENERAL: Well-developed and well-nourished in no distress SKIN: Warm and dry. CARDIOVASCULAR: Irregularly irregular RESPIRATORY: No accessory muscle use. Clear to auscultation. Breath sounds equal bilaterally. GASTROINTESTINAL: Abdomen soft, non-tender, nondistended. Penile edema MUSCULOSKELETAL: Extremities without clubbing, cyanosis but with bilateral lower extremity pitting edema. No obvious deformities. NEUROLOGICAL: Awake and alert. No obvious cranial nerve deficits. Motor grossly within normal limits. Five out of 5 muscle strength in the arms and legs. - Urinary Catheter Management Indwelling Urethral Catheter Cath placed during this visit: yes Reason for continuing: Chronic Urinary Retention Insertion date: 03/20/18 Insertion time: 09:17 Results - Labs CBC & Chem 7: 03/20/18 05:37 03/22/18 04:37 Laboratory Results - last 24 hr 03/22/18 03/22/18 04:37 04:45 PT 21.2 H INR 2.1 Sodium 140 Potassium 3.5 Chloride 96 L Carbon Dioxide 39.7 H Anion Gap 4 L BUN 17 Creatinine 0.91 Estimated GFR 82 L Random Glucose 87 Calcium 8.2 L Magnesium 2.0 - Procedures none Assessment and Plan - Assessment (1) CHF (congestive heart failure) Code(s): I50.9 - Heart failure, unspecified Status: Acute (2) Elevated troponin Code(s): R74.8 - Abnormal levels of other serum enzymes Status: Acute - Plan This is a 73-year-old male with a history of systolic heart failure EF 25%, atrial fibrillation on Coumadin, aVR, coronary artery disease status post multiple CABG and stent and chronic respiratory failure on nasal cannula. Patient presents to the emergency department because of shortness of breath for the past 2 weeks. He reports of orthopnea, PND, dyspnea on exertion, bilateral lower extremity edema and weight gain. Acute on chronic systolic heart failure EF 25%. This is likely secondary to dietary indiscretion. Chest x-ray image interpreted by me with bilateral pleural effusion. CHF education, I/oh and monitor weight. Patient is diuresing but not losing weight. IV Lasix has been increased to 40 mg twice a day. Consider Entresto or MARYJANE/ARB. Continue Coreg. Ct [place], patient aware risk of infection Elevated troponin secondary to heart failure exacerbation. Patient denies chest pain. EKG shows atrial fibrillation with PVC, LAD and T changes in the lateral leads. History of coronary artery disease status post CABG and stent. Patient received aspirin continue Coreg. He does not want cardiac catheterization at this time. Hypokalemia. Replaced DVT prophylaxis with SCD and Coumadin keep INR between 2.5-3 history of AVR/fib Discharge Planning: Home in 1-2 days not ready for discharge still with significant fluid overload requiring IV diuresis. Wants aggressive care now and resume hospice when discharge. Does not need home care PT might benefit from nursing if patient rescinds hospice
[2018-03-23 05:29] LABS: Potassium 3.9 meq/L (3.5-5.1)
[2018-03-23 05:33] LABS: Calcium 8.2 mg/dL (8.5-10.1); INR 2.1 Ratio; Prothrombin Time 21.6 sec (9.8-11.6)
[2018-03-23 05:34] LABS: Carbon Dioxide 39.6 meq/L (21.0-32.0)
[2018-03-23] MEDS: LORazepam 0.5 MG Tablet PO PRN ×2 (05:48→22:23)
[2018-03-23] MEDS: Digoxin 125 MCG Tablet PO SCH (09:36)
--- NOTE | 2018-03-23 13:10 | P.PN ---
Subjective Interval history: Follow-up heart failure. He has no new complaints. No significant diuresis yesterday. Weight has increased by 2 kg. Physical Exam Vital signs: Vital Signs 03/22/18 16:23 03/22/18 19:25 03/22/18 20:00 Temperature 98.6 F 97.4 F L Pulse Rate 78 56 L Respiratory Rate 16 16 Blood Pressure 110/78 103/59 L Pulse Oximetry 95 99 96 03/23/18 00:00 03/23/18 04:00 03/23/18 07:00 Temperature 98.0 F 97.5 F L Pulse Rate 68 75 Respiratory Rate 16 18 Blood Pressure 91/62 L 105/58 L Pulse Oximetry 97 96 97 03/23/18 08:00 03/23/18 12:00 Temperature 96.6 F L 96.4 F L Pulse Rate 95 H 90 Respiratory Rate 18 18 Blood Pressure 113/63 101/57 L Pulse Oximetry 98 98 Intake & Output 03/22/18 03/23/18 03/23/18 18:59 06:59 18:59 Intake Total 240 / 240 Output Total 300 / 300 Balance -300 / -300 240 / 240 Weight 81.1 kg Intake: Oral 240 / 240 Output: Urine 300 / 300 Other: # Voids 1 Narrative: GENERAL: Well-developed and well-nourished in no distress SKIN: Warm and dry. CARDIOVASCULAR: Irregularly irregular RESPIRATORY: No accessory muscle use. Clear to auscultation. Breath sounds equal bilaterally. GASTROINTESTINAL: Abdomen soft, non-tender, nondistended. Penile edema MUSCULOSKELETAL: Extremities without clubbing, cyanosis but with bilateral lower extremity pitting edema. No obvious deformities. NEUROLOGICAL: Awake and alert. No obvious cranial nerve deficits. Motor grossly within normal limits. Five out of 5 muscle strength in the arms and legs. - Urinary Catheter Management Indwelling Urethral Catheter Cath placed during this visit: yes, but has since been removed by the nurse Reason for continuing: Chronic Urinary Retention Insertion date: 03/20/18 Insertion time: 09:17 Removal date: 03/23/18 Removal time: 05:31 Results - Labs CBC & Chem 7: 03/20/18 05:37 03/23/18 04:53 Laboratory Results - last 24 hr 03/23/18 03/23/18 04:53 04:53 PT 21.6 H INR 2.1 Sodium 141 Potassium 3.9 Chloride 98 Carbon Dioxide 39.6 H Anion Gap 3 L BUN 15 Creatinine 0.92 Estimated GFR 81 L Random Glucose 84 Calcium 8.2 L Magnesium 2.0 - Procedures none Assessment and Plan - Assessment (1) CHF (congestive heart failure) Code(s): I50.9 - Heart failure, unspecified Status: Acute (2) Elevated troponin Code(s): R74.8 - Abnormal levels of other serum enzymes Status: Acute - Plan This is a 73-year-old male with a history of systolic heart failure EF 25%, atrial fibrillation on Coumadin, aVR, coronary artery disease status post multiple CABG and stent and chronic respiratory failure on nasal cannula. Patient presents to the emergency department because of shortness of breath for the past 2 weeks. He reports of orthopnea, PND, dyspnea on exertion, bilateral lower extremity edema and weight gain. Acute on chronic systolic heart failure EF 25%. This is likely secondary to dietary indiscretion. Chest x-ray image interpreted by me with bilateral pleural effusion. CHF education, I/oh and monitor weight. Did not have significant diuresis yesterday with weight gain despite increasing Lasix to 40 mg twice a day. Will add Zaroxolyn. Consider Entresto or MARYJANE/ARB if BP stable. Continue Coreg. [place] has been discontinued Elevated troponin secondary to heart failure exacerbation. Patient denies chest pain. EKG shows atrial fibrillation with PVC, LAD and T changes in the lateral leads. History of coronary artery disease status post CABG and stent. Patient received aspirin continue Coreg. He does not want cardiac catheterization at this time. Hypokalemia. Replaced DVT prophylaxis with SCD and Coumadin keep INR between 2.5-3 history of AVR/fib Discharge Planning: Home in 1-2 days not ready for discharge still with significant fluid overload requiring IV diuresis. Wants aggressive care now and resume hospice when discharge. Does not need home care PT might benefit from nursing if patient rescinds hospice
[2018-03-24 07:39] LABS: Chloride 91 meq/L (98-107); Potassium 3.2 meq/L (3.5-5.1); Sodium 137 meq/L (136-145)
[2018-03-24 07:41] LABS: INR 2.6 Ratio; Prothrombin Time 26.4 sec (9.8-11.6)
[2018-03-24 07:43] LABS: Calcium 8.6 mg/dL (8.5-10.1)
[2018-03-24 07:44] LABS: Anion Gap 6 meq/L (5-15); Blood Urea Nitrogen 14 mg/dL (7-18); Carbon Dioxide 40.1 meq/L (21.0-32.0); Glucose,Random 85 mg/dL (74-106); Magnesium 1.9 mg/dL (1.5-2.5)
[2018-03-24 07:47] LABS: Glomerular Filtration Rate Greater Than 89 mL/min (>89)
[2018-03-24] MEDS: Digoxin 125 MCG Tablet PO SCH (09:56)
--- NOTE | 2018-03-24 11:07 | P.DS ---
Date of admission: 03/20/18 09:24 Primary care physician: UNKNOWN Brief History from admission: This is a 73-year-old male with a history of systolic heart failure EF 25%, atrial fibrillation on Coumadin, aVR, coronary artery disease status post multiple CABG and stent and chronic respiratory failure on nasal cannula. Family history no MO. Patient presents to the emergency department because of shortness of breath for the past 2 weeks. He reports of orthopnea, PND, dyspnea on exertion, bilateral lower extremity edema and weight gain. States he has been compliant with medical therapy, fluid and dietary restrictions though he admitted partaking microwavable food. Denies fever, chills, cough, chest pain. Patient has been under hospice for the past 3 weeks secondary to heart failure. At this time he wants aggressive care but does not want cardiac catheterization. All other systems reviewed negative. DS: Diagnosis - Discharge Diagnosis (1) CHF (congestive heart failure) Status: Acute (2) Elevated troponin Status: Acute DS: Medications - Discharge Medications Prescriptions: metolazone 2.5 mg PO DAILY #30 tab potassium chloride [Klor-Con 10] 20 meq PO BID #60 tab DS: Summary Hospital Course: This is a 73-year-old male with a history of systolic heart failure EF 25%, atrial fibrillation on Coumadin, aVR, coronary artery disease status post multiple CABG and stent and chronic respiratory failure on nasal cannula. Patient presents to the emergency department because of shortness of breath for the past 2 weeks. He reports of orthopnea, PND, dyspnea on exertion, bilateral lower extremity edema and weight gain. Acute on chronic systolic heart failure EF 25%. This is likely secondary to dietary indiscretion. Chest x-ray image interpreted by me with bilateral pleural effusion. CHF education, I/oh and monitor weight. Improved especially after starting Zaroxolyn. Consider Entresto or MARYJANE/ARB but BP borderline low. Continue Coreg. [place] has been discontinued Elevated troponin secondary to heart failure exacerbation. Patient denies chest pain. EKG shows atrial fibrillation with PVC, LAD and T changes in the lateral leads. History of coronary artery disease status post CABG and stent. Patient received aspirin continue Coreg. He does not want cardiac catheterization at this time. Hypokalemia. Replaced DVT prophylaxis with SCD and Coumadin keep INR between 2.5-3 history of AVR/fib He wants to resume Hospice after dc - Time Spent with Patient Total time spent providing and/or coordinating discharge services: Greater than 30 minutes - Quality: VTE Deep Vein Thrombosis/Pulmonary Embolism Present on Admission: No Exam Vital signs: Vital Signs 03/23/18 12:00 03/23/18 15:30 03/23/18 16:12 Temperature 96.4 F L 97.1 F L Pulse Rate 90 112 H Respiratory Rate 18 18 Blood Pressure 101/57 L 89/69 L 95/63 L Pulse Oximetry 98 100 03/23/18 19:35 03/23/18 20:00 03/24/18 04:00 Temperature 96.9 F L 96.7 F L Pulse Rate 76 81 Respiratory Rate 16 16 Blood Pressure 90/54 L 92/59 L Pulse Oximetry 97 98 99 03/24/18 08:00 03/24/18 08:29 Temperature 96.2 F L Pulse Rate 106 H Respiratory Rate 20 Blood Pressure 96/76 L Pulse Oximetry 97 98 Intake & Output 03/23/18 03/24/18 03/24/18 18:59 06:59 18:59 Intake Total 1115 / 1115 240 / 240 Output Total 800 / 800 Balance 315 / 315 240 / 240 Weight 72.1 kg Intake: Oral 1115 / 1115 240 / 240 Output: Urine 800 / 800 Other: # Voids 1 # Bowel Movements 0 Narrative: GENERAL: Well-developed and well-nourished in no distress SKIN: Warm and dry. CARDIOVASCULAR: Irregularly irregular RESPIRATORY: No accessory muscle use. Clear to auscultation. Breath sounds equal bilaterally. GASTROINTESTINAL: Abdomen soft, non-tender, nondistended. Improved Penile edema MUSCULOSKELETAL: Extremities without clubbing, cyanosis but with bilateral lower extremity pitting edema which is improving. No obvious deformities. NEUROLOGICAL: Awake and alert. No obvious cranial nerve deficits. Motor grossly within normal limits. Five out of 5 muscle strength in the arms and legs. Results Procedures completed during hospitalization: none Labs on day of discharge: Labs from last 24 hours 03/24/18 03/24/18 05:55 05:55 PT 26.4 H INR 2.6 Sodium 137 Potassium 3.2 L Chloride 91 L Carbon Dioxide 40.1 H Anion Gap 6 BUN 14 Creatinine 0.78 Estimated GFR Greater than 89 Random Glucose 85 Calcium 8.6 Magnesium 1.9 - Impressions ITS Impressions Chest X-Ray 03/20/18 05:27 CONCLUSION: Small bilateral effusions and right lower lobe airspace disease suspected. Discharge Plan - Discharge Disposition Patient Disposition: 50 Hospice/Home - Discharge Condition Condition: Fair - Discharge Order Discharge Orders: Discharge Order (Routine); Ordered 03/24/18 Ordered By: Celio Wong - Physicians Team Primary Care Provider: UNKNOWN, Attending Provider: Celio Wong Other Providers: Cj Ricardo DO
== END 2018-03-24 13:55 | disposition hospice, home (50) ==
LOC: PHED 05:25 → PHEDA 09:24 → PH3 10:43
PROVIDERS: ADMIT Internal Medicine; ATTEND Internal Medicine